=== PATIENT | male | born 1970 | race Caucasian/White ===

== ENCOUNTER 2024-08-05 06:43 | Day surgery (SDC) | payer MEDICARE ==
[2024-08-05] MEDS ORDERED: fentaNYL 50 MCG/ML SDV ONE (06:57)
[2024-08-05] MEDS ORDERED: Propofol 200 MG/20 ML SDV ONE ×2 (06:57→08:18)
[2024-08-05] MEDS: Lactated Ringers 1,000 ML IV SCH (07:22)
== END 2024-08-05 09:27 | disposition home or self-care (01) ==
LOC: JP.SDS 06:43
PROVIDERS: ATTEND Surgery
DX: Z12.11 Encounter for screening for malignant neoplasm of colon (principal); D12.6 Benign neoplasm of colon, unspecified; R19.5 Other fecal abnormalities; F17.200 Nicotine dependence, unspecified, uncomplicated
CPT/HCPCS: 00811; 45385; 88305; J2704; J3010; J7120